=== PATIENT | female | born 1980 | race African-American/Black ===

== ENCOUNTER 2016-10-10 09:54 | Inpatient (IN) | payer MEDICAID ==
[2016-10-09 15:46] LABS: BASOPHILS 0.2 % (0.0-2.0); EOSINOPHILS 1.7 % (0-7); HEMATOCRIT 38.4 % (36.0-48.0); HEMOGLOBIN 12.1 g/dL (12-16); IMMATURE GRANULOCYTES 0.2 % (0-5); LYMPHOCYTES 24.3 % (15-50); MCH 26.4 pg (26.0-34.0); MCHC 31.5 g/dL (31.0-37.0); MCV 83.8 fL (80.0-100.0); MEAN PLATELET VOLUME 9.7 fL (7.4-10.4); MONOCYTES 7.6 % (2-11); PLATELET COUNT 284 10x3/uL (130-400); RBC 4.58 10x6/uL (4.00-5.40); RDW 13.7 % (11.5-14.5); WBC 6.5 10x3/uL (4.8-10.8)
[2016-10-09 16:03] LABS: APPEARANCE CLEAR (CLEAR); BACTERIA NONE SEEN /hpf (NONE SEEN); BILIRUBIN NEGATIVE (NEGATIVE); CALC OSMOLALITY 277 mosm/kg (275-300); CALCIUM 8.7 mg/dL (8.5-10.1); CARBON DIOXIDE 31.3 mmol/L (21.0-32.0); CHLORIDE - SERUM 104 mmol/L (98-107); COLOR YELLOW (YELLOW); CREATININE - SERUM 0.7 mg/dL (0.6-1.3); EPITHELIAL CELLS 0-5 /hpf (0-5); GLUCOSE 79 mg/dL (74-106); GLUCOSE NEGATIVE (NEGATIVE); KETONE NEGATIVE (NEGATIVE); LEUKOCYTE ESTERASE TRACE (NEGATIVE); NITRITE NEGATIVE (NEGATIVE); POTASSIUM - SERUM 4.1 mmol/L (3.5-5.1); PROTEIN NEGATIVE (NEGATIVE); RED CELLS - URINE 0-5 /hpf (0-5); SODIUM 141 mmol/L (136-145); SPECIFIC GRAVITY 1.005 (1.005-1.020); UREA NITROGEN 7 mg/dL (7-18); UROBILINOGEN NORMAL (NORMAL); WHITE CELLS - URINE 0-5 /hpf (0-5); eGFR NON AFRICAN AMERICAN > 90 mL/min (90-120)
[~2016-10-10] VITALS: Ht 160 cm; Wt 100.0 kg
[2016-10-10 09:30] VITALS: BP 139/77; BMI 39.0
[~2016-10-10 09:54] MED LIST: ADIPEX-P37.5 MG PO; BACTRIM DS TABL1 TAB PO; HYDROCODONE-APA1 TAB PO; IRON IV; KLONOPIN0.5 MG PO
--- NOTE | 2016-10-10 15:50 | NUR ---
RECEIVED TO ROOM 2210 FROM RECOVERY ROOM VIA BED.
[2016-10-10 15:51] VITALS: BP 122/73
[2016-10-10 16:57] VITALS: BP 122/73; Ht 160 cm; Wt 100.0 kg
[2016-10-10] MEDS ORDERED: FERROUS SULFAT325 MG PO (17:01)
--- NOTE | 2016-10-10 17:03 | NUR ---
PT SEEN AND ASSESSEDF FROM PACU. CURRENTLY ON BIPAP WITH 35% SETTINGS. STILL COUGHS AT INTERVELS WITH BLOODY SPUTUM PRODUCED. IV LEFT FOREARM. C/O PAIN 8/10 TO LOW BACK. PT LOG ROLLED TO SIDE WITH ASSISTANCE AND INCISION NOTED TO LOWER BACK CLEAN DRY AND INTACT WITH STERI STRIPS NOTED. FAMILY AT BEDSIDE. CALL LIGHT IN REACH.
[2016-10-10 17:05] LABS: BASOPHILS 0.1 % (0.0-2.0); EOSINOPHILS 0 % (0-7); HEMATOCRIT 36.8 % (36.0-48.0); HEMOGLOBIN 11.5 g/dL (12-16); IMMATURE GRANULOCYTES 0.3 % (0-5); LYMPHOCYTES 3.6 % (15-50); MCH 26.1 pg (26.0-34.0); MCHC 31.3 g/dL (31.0-37.0); MCV 83.6 fL (80.0-100.0); MEAN PLATELET VOLUME 9.2 fL (7.4-10.4); MONOCYTES 1.4 % (2-11); NEUTROPHILS 94.6 % (40-80); PLATELET COUNT 259 10x3/uL (130-400); RDW 13.6 % (11.5-14.5)
[2016-10-10 17:12] LABS: CALC OSMOLALITY 279 mosm/kg (275-300); CALCIUM 8.1 mg/dL (8.5-10.1); CHLORIDE - SERUM 103 mmol/L (98-107); CREATININE - SERUM 0.9 mg/dL (0.6-1.3); GLUCOSE 120 mg/dL (74-106); POTASSIUM - SERUM 3.8 mmol/L (3.5-5.1); SODIUM 141 mmol/L (136-145); UREA NITROGEN 8 mg/dL (7-18); eGFR NON AFRICAN AMERICAN 75 mL/min (90-120)
[2016-10-10 17:15] LABS: WBC 15.1 10x3/uL (4.8-10.8)
[2016-10-10 17:44] LABS: CREATINE KINASE 228 UL (21-215); PRO BNP 42 pg/mL (0-125)
[2016-10-10 17:48] LABS: TROPONIN-I < 0.017 ng/mL (0.000-0.060)
[2016-10-10 17:49] LABS: CKMB 1.1 U/L (0.0-3.6)
--- NOTE | 2016-10-10 18:25 | NUR ---
TO CT AND BACK. NO CHANGES IN INITIAL ASSESSMENT. FAMILY IN ROOM. CALL LIGHT IN REACH. SCDs TO BLE. WILL CONTINUE WITH PLAN OF CARE.
[2016-10-10 20:00] VITALS: BP 157/68
--- NOTE | 2016-10-10 20:00 | NUR ---
RECIEVED PT LYING IN BED AWAKE, ASSISTED TO RESTROOM, DSG TO LOWER BACK CDI, ASSESSMENT COMPLETED, NO ACUTE DISTRESS NOTED, SIG OTHER IN ROOM, DENIES NEEDS AT THIS TIME, FALL PRECAUTIONS IN PLACE, CL IN REACH, WILL MONITOR
--- NOTE | 2016-10-10 20:40 | NUR ---
PRN PERCOCET GIVEN FOR C/O BACK PAIN 05/12 ALONG WITH ROUTINE MUCINEX, ASSISTED TO RESTROOM, BUFFY WELL, FALL PRECAUTIONS IN PLACE, CL IN REACH
--- NOTE | 2016-10-10 23:34 | NUR ---
LYING IN BED AWAKE, NO DISTRESS NOTED, DENIES NEEDS, S/O IN ROOM, CL IN REACH
[2016-10-11] VITALS (7 sets, daily range): BP systolic 101–124; BP diastolic 41–64
--- NOTE | 2016-10-11 05:42 | NUR ---
PRN ZOFRAN GIVEN FOR C/O NAUSEA, BUFFY WELL, CL IN REACH
[2016-10-11 06:15] LABS: BASOPHILS 0 % (0.0-2.0); EOSINOPHILS 0 % (0-7); HEMATOCRIT 36.4 % (36.0-48.0); HEMOGLOBIN 11.3 g/dL (12-16); IMMATURE GRANULOCYTES 0.2 % (0-5); LYMPHOCYTES 6.1 % (15-50); MCV 83.7 fL (80.0-100.0); MEAN PLATELET VOLUME 9.5 fL (7.4-10.4); MONOCYTES 4.9 % (2-11); NEUTROPHILS 88.8 % (40-80); RBC 4.35 10x6/uL (4.00-5.40); RDW 13.6 % (11.5-14.5); WBC 14.5 10x3/uL (4.8-10.8)
[2016-10-11 06:18] LABS: PLATELET COUNT 315 10x3/uL (130-400)
[2016-10-11 06:27] LABS: CALC OSMOLALITY 275 mosm/kg (275-300); CALCIUM 8.6 mg/dL (8.5-10.1); CHLORIDE - SERUM 103 mmol/L (98-107); CREATININE - SERUM 0.9 mg/dL (0.6-1.3); GLUCOSE 106 mg/dL (74-106); SODIUM 139 mmol/L (136-145); UREA NITROGEN 8 mg/dL (7-18); eGFR NON AFRICAN AMERICAN 75 mL/min (90-120)
[2016-10-11 06:28] LABS: POTASSIUM - SERUM 4.6 mmol/L (3.5-5.1)
--- NOTE | 2016-10-11 07:31 | NUR ---
PATIENT RESTING QUIETLY WITH EYES CLOSED. PATIENT AWAKENS TO VERBAL STIMULI. NEXT TO PATIENT. PATIENT DENIES ANY NEEDS AT PRESENT TIME. CALL LIGHT IN PATIENT'S REACH. WILL MONITOR PATIENT.
--- NOTE | 2016-10-11 08:15 | NUR ---
PATIENT RESTING IN BED WITH AT HER BEDSIDE. PATIENT COMPLAINS OF PAIN IN HER BACK. PATIENT RATES HER PAIN LEVEL A "7" ON A 0-10 SCALE. PRN PERCOCET GIVEN TO PATIENT FOR PAIN. SCHEDULED MUCINEX GIVEN TO PATIENT. PATIENT TOLERATED ALL MEDICATIONS WELL. ASSESSMENT COMPLETED. SEE FLOWSHEET FOR DETAILS. SCD'S IN PLACE TO BILATERAL LOWER EXTREMITIES. PATIENT DENIES ANY NEEDS AT PRESENT TIME. BREAKFAST TRAY SERVED TO PATIENT. CALL LIGHT IN PATIENT'S REACH. WILL MONITOR PATIENT.
--- NOTE | 2016-10-11 23:58 | NUR ---
PT IS AWAKE AND WATCHING TV. WHEN ASKED IF SHE NEEDED ANYTHING SHE THOUGHT ABOUT IT AND CAME UP WITH NOTHING. NO DISTRESS NOTED. BED LOW, RAILS UP X'S 2 WITH THE CALL LIGHT AT HAND.
[2016-10-12 01:00] VITALS: BP 114/67
[2016-10-12 05:00] VITALS: BP 122/69
[2016-10-12 06:54] LABS: BASOPHILS 0.1 % (0.0-2.0); EOSINOPHILS 0.1 % (0-7); HEMATOCRIT 32.8 % (36.0-48.0); HEMOGLOBIN 10.1 g/dL (12-16); IMMATURE GRANULOCYTES 0.3 % (0-5); LYMPHOCYTES 27.9 % (15-50); MCH 25.8 pg (26.0-34.0); MCHC 30.8 g/dL (31.0-37.0); MCV 83.9 fL (80.0-100.0); MEAN PLATELET VOLUME 9.3 fL (7.4-10.4); NEUTROPHILS 63.6 % (40-80); PLATELET COUNT 272 10x3/uL (130-400); RBC 3.91 10x6/uL (4.00-5.40); RDW 13.8 % (11.5-14.5)
[2016-10-12 07:03] LABS: CALC OSMOLALITY 273 mosm/kg (275-300); CALCIUM 8.1 mg/dL (8.5-10.1); CARBON DIOXIDE 30.6 mmol/L (21.0-32.0); CHLORIDE - SERUM 102 mmol/L (98-107); CREATININE - SERUM 0.8 mg/dL (0.6-1.3); GLUCOSE 89 mg/dL (74-106); SODIUM 138 mmol/L (136-145); UREA NITROGEN 10 mg/dL (7-18); eGFR NON AFRICAN AMERICAN 86 mL/min (90-120)
[2016-10-12 07:05] LABS: POTASSIUM - SERUM 3.7 mmol/L (3.5-5.1)
[2016-10-12 08:12] VITALS: BP 106/59
--- NOTE | 2016-10-12 09:27 | NUR ---
IN BED OXIMIZER ON O2 96%, COMPLAINTS OF HEADACHE PERCOCET GIVEN, VOMITED IN TRASH ZOFRAN IV GIVEN, ASSESSMENT COMPLETE, DENIES ANY OTHER NEEDS, BED LOWEST POSITION, SCD'S OFF SKIN WNL, CALL LIGHT IN REACH
--- NOTE | 2016-10-12 11:43 | NUR ---
PATIENT IS RESTING QUIETLY WITH EYES CLOSED. NO SIGNS OF DISTRESS NOTED. PATIENT IS RECIEVING OXYGEN VIA OXYMIZER AT 2L/MIN. BED IN LOWEST POSITION, CALL LIGHT IN REACH. BED RAILS UP X'S 2.
[2016-10-12 12:03] VITALS: BP 124/61
[2016-10-12 16:48] VITALS: BP 112/61
[2016-10-12 21:00] VITALS: BP 122/61
--- NOTE | 2016-10-12 22:03 | NUR ---
IV TO L AC INFILTRATED, DC'D WITH CATH INTACT, 20 G PLACED IN R WRIST X 1 ATTEMPT, BUFFY WELL, SR'S UP , CL IN REACH
[2016-10-13] VITALS: BP 114/60
--- NOTE | 2016-10-13 03:05 | NUR ---
PATIENT SLEEPING ON HER BACK WITH THE TV ON. PECOCET WAS GIVEN AROUND 0220 FOR BACK PAIN. PHENERGAN WAS GIVEN IN THE RIGHT WRIST TO HELP WITH THE NAUSEA THAT COMES WITH TAKING PAIN MEDICATION. NO NEEDS NOTED AT THIS TIME
[2016-10-13 04:00] VITALS: BP 112/55
[2016-10-13 05:57] LABS: CALCIUM 8.2 mg/dL (8.5-10.1); CHLORIDE - SERUM 103 mmol/L (98-107); POTASSIUM - SERUM 3.2 mmol/L (3.5-5.1); SODIUM 146 mmol/L (136-145); UREA NITROGEN 12 mg/dL (7-18)
[2016-10-13 05:58] LABS: CALC OSMOLALITY 293 mosm/kg (275-300); CARBON DIOXIDE 38.7 mmol/L (21.0-32.0); CREATININE - SERUM 0.5 mg/dL (0.6-1.3); GLUCOSE 150 mg/dL (74-106); eGFR NON AFRICAN AMERICAN > 90 mL/min (90-120)
[2016-10-13 06:13] LABS: BASOPHILS 0.1 % (0.0-2.0); EOSINOPHILS 1.7 % (0-7); HEMATOCRIT 33.3 % (36.0-48.0); HEMOGLOBIN 10.1 g/dL (12-16); IMMATURE GRANULOCYTES 0.3 % (0-5); LYMPHOCYTES 27.5 % (15-50); MCH 25.6 pg (26.0-34.0); MCHC 30.3 g/dL (31.0-37.0); MCV 84.5 fL (80.0-100.0); MEAN PLATELET VOLUME 9.6 fL (7.4-10.4); MONOCYTES 7.3 % (2-11); NEUTROPHILS 63.1 % (40-80); PLATELET COUNT 267 10x3/uL (130-400); RBC 3.94 10x6/uL (4.00-5.40); RDW 13.8 % (11.5-14.5); WBC 8.6 10x3/uL (4.8-10.8)
--- NOTE | 2016-10-13 07:25 | NUR ---
PATIENT RECEIVED ALERT IN LOW SCOTT POSITION. RESPIRATIONS EVEN AND UNLABORED. SIDE RAILS UP X2. BED IN LOW POSITION. CALL LIGHT IN REACH.
--- NOTE | 2016-10-13 08:25 | NUR ---
PATIENT ALERT IN BED WATCHING TV. RESPIRATIONS EVEN AND UNLABORED. SCHEDULED MEDICATION ADMINISTERED. SIDE RAILS UP X2. BED IN LOW POSITION. CALL LIGHT IN REACH.
[2016-10-13 08:37] VITALS: BP 126/69
--- NOTE | 2016-10-13 10:40 | NUR ---
ALERT IN BED. C/O PAIN 03/12. 2 TAB PERCOCET ADMINISTERED PER PRN ORDER. NO FURTHER NEEDS VOICED. SIDE RAILS UP X3. BED IN LOW POSITION. CALL LIGHT IN REACH.
[2016-10-13] MEDS ORDERED: AUGMENTIN 875-11 TAB PO (10:46)
[2016-10-13] MEDS ORDERED: PERCOCET 10/3251 TA1 PO (10:47)
[2016-10-13] MEDS ORDERED: PHENERGAN25 M1 PO (10:49)
--- NOTE | 2016-10-13 10:57 | OP ---
PATIENT NAME: SHEILA FAULKNER MEDICAL RECORD: [id number] :78 LOCATION:D.MS [facility] ADMISSION DATE:10/10/16 SURGEON: ANA LILIA MAYER MD DATE OF OPERATION: 10/10/2016 DIAGNOSIS: L4-L5 spinal stenosis secondary to lumbar spondylosis and disc protrusion. PROCEDURE: L4-L5 right hemilaminectomy and medial facetectomy with decompression of spinal canal and foraminotomy on the right. SURGEON: Ana Lilia Mayer MD FISH CONSERVATIONIST: Nilson Epperson MD ESTIMATED BLOOD LOSS: 50 cc. SUMMARY: The patient was taken to the operating room and after an adequate level of general anesthetic, was prepped and draped in the usual aseptic manner on a Tayo frame. An incision was made to the right of the spinous processes of L4 and L5 with a 10 blade after infiltrating with 1:400,000 of epinephrine and 0.5% lidocaine. Dissection was carried out down to the interlaminar space with Metzenbaum scissors. A matrix operating channel 1.5 cm in diameter, 9 cm in length was inserted over the interlaminar space, the medial aspect of the facet joint was removed with a Midas[place] drill. A Cloward punch was then used to remove the lamina from L5 and S1 to enlarge the laminotomy defect. Decompression was also carried out medially on the ventral aspect of the spinous processes to decompress the canal centrally. The ligamentum flavum which was quite thickened, was then removed as well, which further decompressed the neural elements. When a thorough and wide decompression had been carried out, dissection was carried out beneath the traversing and exiting nerve root and a hard bony osteophyte was identified ventral to the cauda equina. No soft disc fragment was identified. For this reason, the wound was irrigated and a thorough decompression having been carried out and a closure carried out with 2-0 Dexon on the fascia, 3-0 Dexon on the subcutaneous tissue and a subcuticular stitch, a 4-0 Dexon was used on the skin. The patient tolerated the procedure well, and was taken to recovery in stable condition. TRANSINT:[id number] Voice Confirmation ID: [id number] DOCUMENT ID: [id number] ANA LILIA MAYER MD at 1055 CC: [id number] DICTATION DATE: 10/10/16 1359 MANAGER PRIMARY: 10/10/16 193 ADM IN [facility] [address] [id number]
--- NOTE | 2016-10-13 10:57 | HP ---
PATIENT: SHEILA FAULKNER MEDICAL RECORD: [id number] ACCOUNT: [id number] LOCATION:D.MS [facility] : [birth year] ADMISSION DATE: 10/10/16 HISTORY AND PHYSICAL EXAMINATION CHIEF COMPLAINT: Back pain. HISTORY OF PRESENT ILLNESS: This is an overweight black female, who presented to our office with extreme back pain radiating into her left leg. We had scheduled her earlier for surgery, but she has family tragedy, which caused just delay the surgery. She has tried lumbar epidural steroid injections, physical therapy and nothing has helped her pain and she is taking hydrocodone that has been prescribed by Dr. Washington. She has also recently been on Adipex, but has not taken in over a week's time. PAST MEDICAL HISTORY: Significant for a cerclage, two C-sections, right knee scope and drainage of the abscess under both arms. SOCIAL HISTORY: She is single. She works at [employer]. FAMILY HISTORY: Both parents are living. ALLERGIES: None. CURRENT MEDICATIONS: Clonazepam, tramadol, Paxil and tizanidine. REVIEW OF SYSTEMS: She denies any recent chest pain, shortness of breath or weight changes. PHYSICAL EXAMINATION: GENERAL: This is an alert, oriented female, who is 5 feet, 2 inches and weighs 210. HEENT: Normocephalic. Pupils are equal, reactive to light. CHEST: Clear bilaterally to auscultation. HEART: S1 and S2. ABDOMEN: Soft. Bowel sounds present. EXTREMITIES: She has a positive straight leg raise bilaterally. She has decreased range of motion of her lumbar spine. IMPRESSION: L4-L5 herniated disc. PLAN: A L4-L5 lumbar laminectomy discectomy. The risk and benefits of surgery have been explained to her in detail. Risks include bleeding, failure to relieve symptoms, problems with anesthesia and . Time was allowed for questions, questions were answered. The patient wishes to proceed with surgery. TRANSINT:[id number] Voice Confirmation ID: [id number] DOCUMENT ID: [id number] Dictated By: DAMIAN ZHENG I have interviewed/examined the above patient and agree with these documented findings. HISTORY AND PHYSICAL [id number] KAUSHIKANA LILIA POOLE MD at 1057 at 0757 CC: [id number] DICTATION DATE: 10/09/16 1728 GYNECOLOGY TEACHER: 10/09/16 1837 ADM IN [facility] [address] [id number]
--- NOTE | 2016-10-13 11:03 | NUR ---
Patient Name: SHEILA FAULKNER Admission Status: Elective Accout number: [id number] Admission Date: 10-10-2016 : 1980 Admission Diagnosis: Attending: LURDES Current LOS: 3 Anticipated DC Date: 10-13-2016 Planned Disposition: Home Primary Insurance: [place] [employer] [place] Discharge Planning Comments: CM MET WITH PATIENT REGARDING D/C NEEDS AND PLANS. PATIENT STATED SHE LIVES WITH HER FAMILY AND TWO CHILDREN AND IT IS A SAFE HOME. PATIENTS FRIEND (JC) WILL DRIVE HER HOME AT DISCHARGE TODAY. PATIENTS PCP IS DR. MADDOX AND PHARMACY IS [facility] AT [facility]. PATIENT IS INDEPENDENT WITH HER CARE AND HAS A WALKER AT HOME IF NEEDED SHE STATED. PATIENT DENIED HOME HEALTH OR ANY OTHER NEEDS FOR DISCHARGE TODAY. CM WILL CONTINUE TO FOLLOW PATIENT WITH D/C NEEDS AND PLANS. PCP DR. TAN RUIZ ON [facility]- [phone] JOSÉ MIGUEL LOMELI ([facility] [place] [phone] [employer] Lot Attendant: Barbara Gonsalves Is the patient Alert and Oriented? Yes 0 * How many steps to enter\exit or inside your home? 0 0 * PCP DR. MADDOX 0 * Pharmacy [facility] ON [facility] 0 * Preadmission Environment Home with Family 0 * ADLs Independent 0 * Equipment None 0 * List name and contact numbers for known caregivers / representatives who currently or will assist patient after discharge: JOSÉ MIGUEL LOMELI ([facility] [place] [phone] 0 * Community resources currently utilized None 0 * Additional services required to return to the preadmission environment? Yes 0 * Can the patient safely return to the preadmission environment? Yes 0 * Has this patient been hospitalized within the prior 30 days at any hospital? No 0 Grand Total: 0
--- NOTE | 2016-10-13 11:35 | NUR ---
IV TO LEFT FOREARM D/C WITH CATH TIP INTACT. SITE COVERED WITH GAUZE AND BANDAID. DENIES NEEDS
--- NOTE | 2016-10-13 14:48 | NUR ---
PATIENT IN LEFT LATERAL POSITION RESTING WITH EYES CLOSED. RESPIRATIONS EVEN AND UNLABORED. SIDE RAILS UP X2. BED IN LOW POSITION. CALL LIGHT IN REACH.
--- NOTE | 2016-10-13 15:00 | NUR ---
D/C TEACHING AND WRITTEN PRESCRIPTION PROVIDED. STATES UNDERSTANDING. WAITING ON RIDE TO ARRIVE. DENIES NEEDS.
--- NOTE | 2016-10-13 16:50 | NUR ---
PATIENT D/C HOME. TRANSFERRED DOWNSTAIRS VIA WHEELCHAIR WITH STAFF
--- NOTE | 2016-10-24 13:49 | CN ---
PATIENT NAME:SHEILA LLOYD MEDICAL RECORD: [id number] : 78 LOCATION:D.MS [facility] ADMIT DATE: 10/10/16 ACCOUNT: [id number] CONSULTING PHYSICIAN: NICHO LEONE MD REFERRING PHYSICIAN: ANA LILIA DECKER MD DATE OF CONSULTATION: 10/10/2016 CONSULT REQUESTING PHYSICIAN: Zhang Crabtree MD REASON FOR CONSULTATION: Acute hypoxic respiratory failure and hemoptysis. HISTORY OF PRESENT ILLNESS: Ms. Lloyd is a 35-year-old -[place] Islander female, who underwent laminectomy today. Post-extubation, the patient became dyspneic, shortness of breath and also wheezing. Also she was coughing fresh blood. Denies any chest pain. The patient has no history of lung disease in the past. REVIEW OF SYSTEMS: Mainly in the history of her past medical history. PAST MEDICAL HISTORY: 1. There is no lung disease. 2. There is no hypertension. 3. She is not diabetic. PAST SURGICAL HISTORY: 1. She has 2 C-sections. 2. Right knee arthroscopic surgery. 3. She has drainage of the abscess under both arm. ALLERGIES: There are no known drug allergies. MEDICATIONS: On Philtro was reviewed. PERSONAL AND SOCIAL HISTORY: The patient is single. She worked at [employer]. FAMILY HISTORY: Noncontributory. PHYSICAL EXAMINATION: GENERAL: Now, the patient is lying comfortably. She is not in acute distress. VITAL SIGNS: The blood pressure is 122/73, pulse is 94, respirations 16, temperature 98.8, SPO2 94% on 5 liters nasal cannula. HEENT: Conjunctivae pink, sclerae nonicteric. NECK: Supple. No JVD. There are no stridor. CHEST: There are bilateral crackles. No wheeze on forceful expiration. HEART: Rhythm regular, normal sound, no murmur. ABDOMEN: Soft. Bowel sounds present. No hepatosplenomegaly. RECTAL: Deferred. EXTREMITIES: No cyanosis, no clubbing. There is no pedal edema. SKIN: Warm, normal turgor. CENTRAL NERVOUS SYSTEM: The patient is awake and alert. There is no obvious cranial nerve abnormality. The gait was not tested. IMAGING: Chest radiograph, there is increased interstitial marking. There is no consolidation as such CBC today is pending. IMPRESSION: CONSULT REPORT [id number] SHEILA LLOYD 1. Acute hypoxic respiratory failure secondary to #2. 2. Pulmonary edema, cardiogenic versus noncardiogenic pulmonary edema, possible negative pressure pulmonary edema. 3. Hemoptysis post-extubation, rule out pulmonary embolism. 4. Status post laminectomy. RECOMMENDATION: 1. I will get the CTA of the chest to rule out thromboembolism. 2. Check the BNP. 3. BiPAP if required. 4. Supplemental oxygen as required. 5. Albuterol ipratropium nebulizer. 6. Mucinex DM 2 tablet b.i.d. 7. Repeat a chest radiograph and labs in the morning. Dr. Robledo, once again thanks for involving me in the care of Ms. Lloyd. TRANSINT:[id number] Voice Confirmation ID: [id number] DOCUMENT ID: [id number] NICHO LEONE MD at 1349 CC: ZHANG CRABTREE MD and MANJINDER ROBLEDO MD [id number] DICTATION DATE: 10/10/161702 DRY PAN OPERATOR: 10/11/16 0042 DIS IN 10/13/[address] [facility] [address] [place] [address]
== END 2016-10-13 16:54 | disposition home or self-care (01) | DRG 515 ==
LOC: D.OPS 09:54 → D.MS 12:49 → D.OPS 15:44 → D.MS 15:45 → D.OPS 15:45 → D.MS 10-13 16:54
PROVIDERS: Internal Medicine Pulmonary Disease; ADMIT Neurological Surgery
PROC: 01NB0ZZ Release Lumbar Nerve, Open Approach (ICD-10-PCS; principal; 2016-10-10 11:00)
DX: M47.816 Spondylosis without myelopathy or radiculopathy, lumbar region (principal); J96.01 Acute respiratory failure with hypoxia; R04.2 Hemoptysis; J81.1 Chronic pulmonary edema; M48.06 Spinal stenosis, lumbar region; M51.26 Other intervertebral disc displacement, lumbar region; M25.78 Osteophyte, vertebrae

== ENCOUNTER 2017-02-09 22:19 | Emergency (ER) | payer MEDICAID ==
[2016-10-10 16:57] VITALS: BMI 39.0
[~2017-02-09 22:19] MED LIST changes: +AUGMENTIN 875-11 TAB PO; +FERROUS SULFAT325 MG PO; +PERCOCET 10/3251 TA1 PO; +PHENERGAN25 M1 PO
== END 2017-02-09 23:51 | disposition home or self-care (01) ==
LOC: D.ER 22:19
DX: M54.5 Low back pain (principal)

== ENCOUNTER → 2017-02-13 10:34 | Outpatient (CLI) | payer MEDICAID ==
[2016-10-10 16:57] VITALS: BMI 39.0
== END | disposition home or self-care (01) ==
LOC: D.MRI 10:34
DX: Z98.890 Other specified postprocedural states (principal)

== ENCOUNTER 2017-07-05 00:40 | Emergency (ER) | payer MEDICAID ==
[2016-10-10 16:57] VITALS: BMI 39.0
== END 2017-07-05 01:10 | disposition home or self-care (01) ==
LOC: D.ER 00:40
DX: J02.9 Acute pharyngitis, unspecified (principal)

== ENCOUNTER 2018-10-01 07:27 | Day surgery (SDC) | payer MEDICAID ==
[~2018-10-01] VITALS: Ht 160 cm; Wt 112.0 kg
[~2018-10-01 07:27] MED LIST changes: +ULTRAM50 MG PO
[2018-10-01 07:57] LABS: BASOPHILS 0.2 % (0-2); EOSINOPHILS 1.7 % (0-7); HEMATOCRIT 37.1 % (36.0-48.0); IMMATURE GRANULOCYTES 0.2 % (0-5); LYMPHOCYTES 32.8 % (15-50); MCH 27.4 pg (26.0-34.0); MCHC 32.3 g/dL (31.0-37.0); MCV 84.7 fL (80.0-100.0); MEAN PLATELET VOLUME 8.9 fL (7.4-10.4); MONOCYTES 8.4 % (2-11); NEUTROPHILS 56.7 % (40-80); PLATELET COUNT 261 10x3/uL (130-400); RBC 4.38 10x6/uL (4.00-5.40); RDW 12.4 % (11.5-14.5); WBC 4.7 10x3/uL (4.8-10.8)
[2018-10-01 08:17] LABS: ANION GAP 13.6 mmol/L (8-16); CALCIUM 8.3 mg/dL (8.5-10.1); CARBON DIOXIDE 26.1 mmol/L (21.0-32.0); CREATININE - SERUM 0.9 mg/dL (0.6-1.3); POTASSIUM - SERUM 3.7 mmol/L (3.5-5.1)
[2018-10-01 08:24] VITALS: BP 116/62; Ht 160 cm; Wt 112.0 kg
[2018-10-01] MEDS ORDERED: HYDROCODON-ACE1 EA10 PO (11:30)
--- NOTE | 2018-10-01 12:46 | NUR ---
REC'D FROM RR. FAMILY AT BEDSIDE. DRESSING DI TO LEFT AXILLARY. DROWSY. LEMON UMKUMIUT SODA BROUGHT TO PT.
--- NOTE | 2018-10-01 13:13 | OP ---
PATIENT NAME: SHEILA FAULKNER MEDICAL RECORD: [id number] :78 LOCATION:[facility] ADMISSION DATE: SURGEON: AAMIR LANDRUM MD DATE OF OPERATION: 10/01/2018 PREOPERATIVE DIAGNOSIS: Recurrent axillary hidradenitis. POSTOPERATIVE DIAGNOSIS: Recurrent axillary hidradenitis. PROCEDURE: Excision of left axillary hidradenitis. SURGEON: Aamir Landrum MD REPORT OF PROCEDURE: The patient's left axilla was prepped and draped in sterile fashion. An ovoid incision transversely was made overlying in an area of inflamed tissue in the left axilla. The inflamed tissue was excised completely and went down to the surrounding normal appearing fatty tissue. There was no purulence that was penetrated during this portion of the procedure. The specimen was sent off for permanent. We then irrigated out the wound with peroxide and saline solution. I undermined the tissue to facilitate closure and then reapproximated the subcutaneous tissues with interrupted 3-0 Vicryls. The skin was then closed longitudinally with running subcutaneous 5-0 Monocryl. COMPLICATIONS: None. CONDITION: Stable. ANESTHESIA: General endotracheal and local. BLOOD LOSS: 30 mL. TRANSINT:[id number] Voice Confirmation ID: [id number] DOCUMENT ID: [id number] AAMIR LANDRUM MD at 1313 CC: MARILYN EASTON [id number] DICTATION DATE: 10/01/18 1133 FIRE OPERATIONS FORESTER: 10/01/18 1203 [facility] [address] [place] [address]
== END 2018-10-01 15:00 | disposition home or self-care (01) ==
LOC: D.OPS 07:27
PROVIDERS: ATTEND Surgery
DX: L73.2 Hidradenitis suppurativa (principal); Z01.812 Encounter for preprocedural laboratory examination

== ENCOUNTER 2019-06-08 01:19 | Emergency (ER) | payer MEDICAID ==
[~2019-06-08] VITALS: Ht 160 cm; Wt 114.5 kg
[~2019-06-08 01:19] MED LIST changes: +HYDROCODON-ACE1 EA10 PO
[2019-06-08 01:23] VITALS: Ht 160 cm; Wt 114.5 kg
[2019-06-08] MEDS ORDERED: AUGMENTIN 875-11 TAB PO (01:45)
[2019-06-08] MEDS ORDERED: FLUTICASONE PRO16 GM NASAL (01:45)
[2019-06-08] MEDS ORDERED: NAPROSYN500 MG PO (01:45)
[2019-06-08 02:10] VITALS: BP 118/65
== END 2019-06-08 02:10 | disposition home or self-care (01) ==
LOC: D.ER 01:19
DX: H66.92 Otitis media, unspecified, left ear (principal); R51 Headache

== ENCOUNTER 2019-09-23 16:40 | Emergency (ER) | payer MEDICAID ==
[~2019-09-23] VITALS: Ht 160 cm; Wt 106.4 kg
[~2019-09-23 16:40] MED LIST changes: +FLUTICASONE PRO16 GM NASAL; +NAPROSYN500 MG PO
[2019-09-23 17:13] VITALS: Ht 160 cm; Wt 106.4 kg
[2019-09-23] MEDS ORDERED: BACLOFEN20 M1 PO (19:18)
[2019-09-23] MEDS ORDERED: VOLTAREN75 MG PO (19:18)
[2019-09-23 20:12] VITALS: BP 135/88
== END 2019-09-23 20:13 | disposition home or self-care (01) ==
LOC: D.ER 16:40
DX: M25.50 Pain in unspecified joint (principal); M79.10 Myalgia, unspecified site; V89.2XXA Person injured in unspecified motor-vehicle accident, traffic, initial encounter; Y93.9 Activity, unspecified; Y92.9 Unspecified place or not applicable